=== PATIENT | male | born 1940 | race Caucasian/White ===

== ENCOUNTER 2018-04-11 00:08 | Inpatient (IN) | payer MEDICARE, OTHER ==
[~2018-04-11] VITALS: Ht 185.4 cm; Wt 84.0 kg
[2018-04-11 02:12] LABS: CLARITY,URINE CLEAR (Clear); COLOR,URINE YELLOW (Yellow); GLUCOSE, URINE NEGATIVE (Neg); KETONES,URINE NEGATIVE (Neg); LEUKOCYTE ESTERASE ,URINE NEGATIVE (Neg); NITRITES, URINE NEGATIVE (Neg); OCCULT BLOOD,URINE NEGATIVE (Neg); PROTEIN,URINE TRACE mg/dl (Neg)
[2018-04-11 02:25] LABS: UA COLLECTION TYPE URINAL
[2018-04-11 02:26] LABS: BACTERIA,URINE FEW /HPF (Neg); RBC,URINE 0-2 /HPF (0-2); SQUAMOUS EPITHELIAL CELL,UR FEW /LPF (FEW); WBC,URINE 0-4 /HPF (0-4)
[2018-04-11 02:27] LABS: BASOPHILS # (AUTO) 0.1 X10'3 (0-0.2); BASOPHILS % (AUTO) 1.2 % (0-1); EOSINOPHILS # (AUTO) 0.2 X10'3 (0-0.9); EOSINOPHILS % (AUTO) 3.2 % (0-6); HEMATOCRIT 40.1 % (42.0-52.0); HEMOGLOBIN 13.9 g/dl (14.0-17.9); LYMPHOCYTES # (AUTO) 0.5 X10'3 (1.1-4.8); LYMPHOCYTES % (AUTO) 7.6 % (21-51); MEAN CORPUSCULAR HEMOGLOBIN 32.5 PG (27.0-31.0); MEAN CORPUSCULAR HGB CONC 34.5 % (33.0-36.5); MEAN CORPUSCULAR VOLUME 94.1 FL (78-98); MEAN PLATELET VOLUME 7.6 FL (7.4-10.4); MONOCYTES # (AUTO) 0.9 X10'3 (0-0.9); NEUTROPHILS # (AUTO) 4.5 X10'3 (1.8-7.7); PLATELET COUNT 328 X10'3 (140-440); RED BLOOD COUNT 4.26 X10'6 (4.70-6.10); RED CELL DISTRIBUTION WIDTH 13.4 % (11.5-14.5); WHITE BLOOD COUNT 6.1 X10'3 (4.5-11.0)
[2018-04-11 02:34] LABS: PROTHROMBIN TIME 10.6 SECONDS (9.0-12.0)
[2018-04-11 02:39] LABS: ALANINE AMINOTRANSFERASE 86 U/L (12-78); ALBUMIN 3.1 G/DL (3.4-5.0); ALBUMIN/GLOBULIN RATIO 0.8 (1.1-1.5); ALKALINE PHOSPHATASE 119 IU/L (46-116); ANION GAP 8 (8-16); ASPARTATE AMINO TRANSFERASE 111 U/L (10-37); BILIRUBIN,TOTAL 1.4 MG/DL (0.1-1.0); BLOOD UREA NITROGEN 18 MG/DL (7-18); BUN/CREATININE RATIO 17.3 (5.4-32.0); CALCIUM 8.6 MG/DL (8.5-10.1); CHLORIDE 99 MMOL/L (99-107); CREATININE 1.04 MG/DL (0.60-1.10); GLUCOSE 122 MG/DL (70-104); POTASSIUM 3.3 MMOL/L (3.5-5.1); SODIUM 136 MMOL/L (135-145); TOTAL CARBON DIOXIDE 29.4 MMOL/L (24-32); TOTAL PROTEIN 7.2 G/DL (6.4-8.2); eGFR 69 ML/MIN
[2018-04-11] MEDS ORDERED: bisacodyl 10mg suppository rectal RC ONE (03:30)
[2018-04-11] MEDS ORDERED: HYDR25TA4 (03:47)
[2018-04-11] MEDS ORDERED: FLUT16SP20 (03:47)
[2018-04-11] MEDS ORDERED: normal saline 1000ML IV soln IVB ONE ×2 (03:50→06:40)
[2018-04-11] MEDS: diatr meglu/diatrizoate 30ml oral sol.-(3 dose) bottle PO SCH ×3 (03:56→05:23)
[2018-04-11] MEDS ORDERED: iohexol 300mg/ml 100ml inj. ONE (05:20)
[2018-04-11] MEDS ORDERED: magnesium 2GM in 50ml NS 50 ML IV ONE (05:37)
[2018-04-11] MEDS ORDERED: potassium 10mEq/100ml NS w/LIDOcaine (10mg/bag) IV ONE (05:40)
[2018-04-11] MEDS ORDERED: piperacillin/tazo 3.375gm/50ml 50 ML IV ONE (06:40)
[2018-04-11] MEDS ORDERED: potassium Cl 20mEq in NS 1,000 ML IV SCH (07:49)
[2018-04-11 07:50] LABS: MAGNESIUM 1.7 MG/DL (1.5-2.4)
[2018-04-11] MEDS ORDERED: morphine 4 MG/ML inj SYRINge IV PRN ×2 (07:50)
[2018-04-11] MEDS ORDERED: ondansetron/PF 4mg/2ml inj IV PRN (07:50)
[2018-04-11] MEDS ORDERED: acetaminophen 325mg tablet PO PRN (07:50)
[2018-04-11] MEDS ORDERED: piperacillin/tazo 3.375gm/50ml 50 ML IV SCH (08:00)
[2018-04-11] MEDS ORDERED: ALB0.5UD IH (08:08)
[2018-04-11 08:40] VITALS: BP 111/81
[2018-04-11] MEDS ORDERED: HYDR25TA4 PO (09:21)
[2018-04-11] MEDS ORDERED: albuterol 2.5 MG/3 ML nebule NEB PRN (09:35)
[2018-04-11] MEDS ORDERED: APIX5TAB3 PO (11:33)
[2018-04-11] MEDS ORDERED: lactobacillus rhamnosus 10,000 MMU CELLS/CAPSULE PO SCH (20:00)
[2018-04-28] MEDS ORDERED: ASPI-611 PO (14:34)
== END 2018-04-11 13:04 | disposition home or self-care (01) | DRG 445 ==
LOC: ER 00:09 → ED HOLD 07:49
PROVIDERS: ADMIT Internal Medicine; ATTEND Internal Medicine
PROC: BW211ZZ Computerized Tomography (CT Scan) of Abdomen and Pelvis using Low Osmolar Contrast (ICD-10-PCS; principal; 2018-04-11)
DX: K80.00 Calculus of gallbladder with acute cholecystitis without obstruction (principal); C64.1 Malignant neoplasm of right kidney, except renal pelvis; I10 Essential (primary) hypertension; I71.4 Abdominal aortic aneurysm, without rupture; Z90.79 Acquired absence of other genital organ(s); Z88.8 Allergy status to other drugs, medicaments and biological substances; Z79.899 Other long term (current) drug therapy; Z79.01 Long term (current) use of anticoagulants
CPT/HCPCS: 36415; 74018; 74177; 76700; 80053; 81001; 83605; 83690; 83735; 85025; 85610; 87040; 93306; 96365; 96368; 96375; 99285; J2543; J3475; J3480; J7030; Q9963; Q9967

== ENCOUNTER 2018-04-29 07:06 | Day surgery (SDC) | payer MEDICARE ==
[~2018-04-29] VITALS: Ht 185.4 cm; Wt 84.0 kg
[2018-04-29] VITALS (11 sets, daily range): BP systolic 116–176; BP diastolic 60–113
[~2018-04-29 07:06] MED LIST: ALB0.5UD IH; ASPI-611 PO; HYDR25TA4 PO; albuterol 2.5 MG/3 ML nebule NEB ONE; ceFOXitin 2 GM ADDvantage bag 100 ML IV ONE; famotidine 20mg tablet PO ONE; ringers solution, lacted 1,000 ML IV SCH
[2018-04-29 07:35] LABS: BASOPHILS % (AUTO) 0.2 % (0-1); EOSINOPHILS # (AUTO) 0.2 X10'3 (0-0.9); EOSINOPHILS % (AUTO) 2.9 % (0-6); LYMPHOCYTES # (AUTO) 0.9 X10'3 (1.1-4.8); MEAN CORPUSCULAR HEMOGLOBIN 32.4 PG (27.0-31.0); MEAN CORPUSCULAR HGB CONC 34.7 % (33.0-36.5); MEAN CORPUSCULAR VOLUME 93.3 FL (78-98); MEAN PLATELET VOLUME 7.5 FL (7.4-10.4); MONOCYTES # (AUTO) 0.9 X10'3 (0-0.9); MONOCYTES % (AUTO) 12.3 % (2-12); NEUTROPHILS # (AUTO) 5.4 X10'3 (1.8-7.7); NEUTROPHILS % (AUTO) 72.6 % (42-75); PRE OP HEMATOCRIT 42.5 % (42.0-52.0); PRE OP HEMOGLOBIN 14.8 g/dL (14.0-17.9); PRE OP PLATELET COUNT 354 X10'3 (140-440); RED BLOOD COUNT 4.55 X10'6 (4.70-6.10); RED CELL DISTRIBUTION WIDTH 13.6 % (11.5-14.5)
[2018-04-29 07:35] LABS: CLARITY,URINE SLIGHTLY CLOUDY (Clear); GLUCOSE, URINE NEGATIVE (Neg); KETONES,URINE TRACE mg/dl (Neg); LEUKOCYTE ESTERASE ,URINE NEGATIVE (Neg); NITRITES, URINE NEGATIVE (Neg); OCCULT BLOOD,URINE LARGE (Neg); PH,URINE 5.5 (4.8-8.0); PROTEIN,URINE TRACE mg/dl (Neg)
[2018-04-29 07:36] LABS: COLOR,URINE DARK YELLOW (Yellow); UA COLLECTION TYPE CLN CATCH MIDSTREAM
[2018-04-29 07:43] LABS: RBC,URINE TNTC /HPF (0-2); WBC,URINE 0-4 /HPF (0-4)
[2018-04-29 07:44] LABS: BACTERIA,URINE NONE SEEN /HPF (Neg); SQUAMOUS EPITHELIAL CELL,UR FEW /LPF (FEW)
[2018-04-29 07:48] LABS: ALBUMIN 3.4 G/DL (3.4-5.0); ALBUMIN/GLOBULIN RATIO 0.8 (1.1-1.5); ALKALINE PHOSPHATASE 98 IU/L (46-116); BLOOD UREA NITROGEN 19 MG/DL (7-18); BUN/CREATININE RATIO 16.2 (5.4-32.0); CALCIUM 9.5 MG/DL (8.5-10.1); CHLORIDE 100 MMOL/L (99-107); CREATININE 1.17 MG/DL (0.60-1.10); PRE OP ALT 20 U/L (30-65); PRE OP ANION GAP 6 (8-16); PRE OP AST 15 U/L (10-37); PRE OP BILIRUB, TOTAL 0.5 MG/DL (0.0-1.0); PRE OP GLUCOSE 101 MG/DL (70-104); PRE OP POTASSIUM 3.4 MMOL/L (3.4-5.1); PRE OP SODIUM 137 MMOL/L (135-145); TOTAL CARBON DIOXIDE 31.5 MMOL/L (24-32); TOTAL PROTEIN 7.7 G/DL (6.4-8.2); eGFR 61 ML/MIN
[2018-04-29] MEDS ORDERED: ceFAZolin 1000mg inj ONE (08:36)
[2018-04-29] MEDS ORDERED: BUPIVAcaine/PF 7.5mg/ml (0.75%) 10ml vial ONE (08:36)
[2018-04-29] MEDS ORDERED: sevoflurane 250ml liquid IH ONE (08:52)
[2018-04-29] MEDS ORDERED: midazolam 2 mg/2 ml injection ONE (08:55)
[2018-04-29] MEDS ORDERED: fentaNYL/PF 50MCG/1 ML 2ML syringe ONE (08:55)
[2018-04-29] MEDS ORDERED: rocuronium 10mg/ml inj IV ONE (08:55)
[2018-04-29] MEDS ORDERED: propofol inj 20 ML IV ONE (08:55)
[2018-04-29] MEDS ORDERED: dexamethasone sod phosphate 4mg/ml inj. ONE (09:23)
[2018-04-29] MEDS ORDERED: glycopyrrolate 0.2mg/ml inj ONE (09:24)
[2018-04-29] MEDS ORDERED: neostigmine methylsulfate 1 MG/ML 10ml vial ONE (09:24)
[2018-04-29] MEDS ORDERED: ringers solution, lacted 1,000 ML IV SCH (09:27)
[2018-04-29] MEDS ORDERED: morphine 4 MG/ML inj SYRINge IV PRN ×2 (09:30)
[2018-04-29] MEDS ORDERED: meperidine/PF 25mg/ml syringe IV PRN ×3 (09:30)
[2018-04-29] MEDS ORDERED: proCHLORperazine 10 MG/2 ml inj IV PRN (09:30)
[2018-04-29] MEDS ORDERED: labetalol 20mg/4ml (5mg/ml) syringe IV PRN (09:30)
[2018-04-29] MEDS ORDERED: ondansetron/PF 4mg/2ml inj IV PRN (09:30)
[2018-04-29] MEDS ORDERED: albuterol 2.5 MG/3 ML nebule NEB ONE (10:10)
[2018-04-29] MEDS ORDERED: albuterol 2.5 MG/3 ML nebule ONE (10:12)
== END 2018-04-29 11:19 | disposition home or self-care (01) ==
LOC: PAS 07:06
PROVIDERS: ATTEND Surgery
DX: K80.10 Calculus of gallbladder with chronic cholecystitis without obstruction (principal); J44.9 Chronic obstructive pulmonary disease, unspecified; I10 Essential (primary) hypertension; F17.210 Nicotine dependence, cigarettes, uncomplicated; I71.4 Abdominal aortic aneurysm, without rupture; Z85.46 Personal history of malignant neoplasm of prostate; Z79.82 Long term (current) use of aspirin; Z79.891 Long term (current) use of opiate analgesic; Z88.6 Allergy status to analgesic agent; Z90.79 Acquired absence of other genital organ(s); Z88.8 Allergy status to other drugs, medicaments and biological substances; Z79.899 Other long term (current) drug therapy; Z98.890 Other specified postprocedural states
CPT/HCPCS: 36415; 47562; 80053; 81001; 85025; 93005; 94640; 94760; J0690; J0694; J1100; J2175; J2250; J2270; J2704; J2710; J3010; J3490; J7120; 88304; A7000

== ENCOUNTER 2019-03-29 06:20 | Day surgery (SDC) | payer MEDICARE ==
[~2019-03-29] VITALS: Ht 185.4 cm; Wt 64.0 kg
[~2019-03-29 06:20] MED LIST changes: -albuterol 2.5 MG/3 ML nebule NEB ONE; -ceFOXitin 2 GM ADDvantage bag 100 ML IV ONE; -famotidine 20mg tablet PO ONE; -ringers solution, lacted 1,000 ML IV SCH
[2019-03-29 06:44] VITALS: BP 128/78
[2019-03-29 08:40] VITALS: BP 121/76
[2019-03-29 08:55] VITALS: BP 128/78
[2019-03-29 09:10] VITALS: BP 129/81
[2019-03-29 09:25] VITALS: BP 129/80
[2019-03-29 09:37] VITALS: BP 135/74
== END 2019-03-29 09:37 | disposition home or self-care (01) ==
LOC: SSTAY O 06:20
PROVIDERS: ATTEND Radiology Vascular & Interventional Radiology
DX: J90 Pleural effusion, not elsewhere classified (principal); I10 Essential (primary) hypertension; Z90.49 Acquired absence of other specified parts of digestive tract; Z98.890 Other specified postprocedural states; Z85.46 Personal history of malignant neoplasm of prostate; Z88.8 Allergy status to other drugs, medicaments and biological substances
CPT/HCPCS: 32555; 71045; C1729

== ENCOUNTER 2019-04-16 17:24 | Emergency (ER) | payer MEDICARE ==
[~2019-04-16] VITALS: Ht 185.4 cm; Wt 64.0 kg
[~2019-04-16 17:24] MED LIST changes: +ALBU8HFA PO; -ASPI-611 PO; +BUDE10.22 INH; -HYDR25TA4 PO; +LACT1CAP26 PO; +LEVO750T46 PO; +MELA3TAB PO; +PRED10TA23 PO; +SODI1TAB2 PO
[2019-04-16 18:09] LABS: BASOPHILS # (AUTO) 0.1 X10'3 (0-0.2); BASOPHILS % (AUTO) 0.9 % (0-1); EOSINOPHILS % (AUTO) 0.1 % (0-6); HEMATOCRIT 34.3 % (42.0-52.0); HEMOGLOBIN 12.2 g/dl (14.0-17.9); LYMPHOCYTES # (AUTO) 0.2 X10'3 (1.1-4.8); LYMPHOCYTES % (AUTO) 2.2 % (21-51); MEAN CORPUSCULAR HEMOGLOBIN 35.5 PG (27.0-31.0); MEAN CORPUSCULAR HGB CONC 35.5 g/dL (33.0-36.5); MEAN PLATELET VOLUME 7.4 FL (7.4-10.4); MONOCYTES # (AUTO) 0.7 X10'3 (0-0.9); MONOCYTES % (AUTO) 6.1 % (2-12); NEUTROPHILS # (AUTO) 9.8 X10'3 (1.8-7.7); NEUTROPHILS % (AUTO) 90.7 % (42-75); PLATELET COUNT 246 X10'3 (140-440); RED BLOOD COUNT 3.43 X10'6 (4.70-6.10); RED CELL DISTRIBUTION WIDTH 13.6 % (11.5-14.5); WHITE BLOOD COUNT 10.8 X10'3 (4.5-11.0)
--- NOTE | 2019-04-16 18:18 | NUR ---
PT ATTEMPTED TO VOID, STATES HE CAN'T AT THIS TIME
[2019-04-16 18:22] LABS: ALANINE AMINOTRANSFERASE 28 U/L (12-78); ALKALINE PHOSPHATASE 87 IU/L (46-116); ANION GAP 5 (8-16); ASPARTATE AMINO TRANSFERASE 18 U/L (10-37); BILIRUBIN,TOTAL 0.4 MG/DL (0.1-1.0); BLOOD UREA NITROGEN 27 MG/DL (7-18); CALCIUM 8.8 MG/DL (8.5-10.1); CHLORIDE 97 MMOL/L (99-107); GLUCOSE 98 MG/DL (70-104); SODIUM 130 MMOL/L (135-145); TOTAL CARBON DIOXIDE 28.1 MMOL/L (24-32); TOTAL PROTEIN 6.1 G/DL (6.4-8.2); eGFR 82 ML/MIN
--- NOTE | 2019-04-16 19:00 | NUR ---
DISCUSSED ELEVATED LACTATE WITH DR RIVAS, NO ORDERS FOR FLUID
[2019-04-16 20:01] LABS: CLARITY,URINE CLEAR (Clear); COLOR,URINE YELLOW (Yellow); GLUCOSE, URINE NEGATIVE (Neg); KETONES,URINE NEGATIVE (Neg); LEUKOCYTE ESTERASE ,URINE NEGATIVE (Neg); NITRITES, URINE NEGATIVE (Neg); OCCULT BLOOD,URINE NEGATIVE (Neg); PH,URINE 8.5 (4.8-8.0); PROTEIN,URINE TRACE mg/dl (Neg)
[2019-04-16 20:06] LABS: UA COLLECTION TYPE URINAL
[2019-04-16 20:07] LABS: BACTERIA,URINE FEW /HPF (Neg); RBC,URINE NONE SEEN /HPF (0-2); SQUAMOUS EPITHELIAL CELL,UR FEW /LPF (FEW)
[2019-04-16] MEDS ORDERED: magnesium citrate 296ml oral solution PO ONE (20:10)
[2019-04-16] MEDS ORDERED: ipratropium/albuterol 3ml nebule NEB ONE (20:10)
--- NOTE | 2019-04-16 21:03 | NUR ---
PATIENT DRINKING MAGNESIUM CITRATE AFTER NEBS COMPLETED
[2019-04-16] MEDS ORDERED: POLY17PO10 PO (21:42)
--- NOTE | 2019-04-16 22:26 | NUR ---
ORDER OF SOAP SUDS ENEMA. PT PLACED IN PEREZ POSITION. APROX. 1 LITER OF WARM WATER RUN SLOWLY INTO RECTUM. PT UNABLE TO HOLD MOST OF ENEMA FLUID FOR RECOMMENDED LENGTH OF TIME.
[2019-04-16 23:42] VITALS: BP 139/73
== END 2019-04-17 00:12 | disposition home or self-care (01) ==
LOC: ER 17:26
DX: K59.00 Constipation, unspecified (principal); J44.9 Chronic obstructive pulmonary disease, unspecified; I10 Essential (primary) hypertension; F17.200 Nicotine dependence, unspecified, uncomplicated; Z88.8 Allergy status to other drugs, medicaments and biological substances; Z79.2 Long term (current) use of antibiotics; Z90.49 Acquired absence of other specified parts of digestive tract; Z85.118 Personal history of other malignant neoplasm of bronchus and lung; Z98.890 Other specified postprocedural states; Z79.899 Other long term (current) drug therapy
CPT/HCPCS: 36415; 71045; 74176; 80053; 81001; 83605; 83880; 85025; 85610; 87040; 87088; 93005; 94640; 94760; 99284

== ENCOUNTER 2019-07-19 08:48 | Emergency (ER) | payer MEDICARE ==
[~2019-07-19] VITALS: Ht 185.4 cm; Wt 60.0 kg
[~2019-07-19 08:48] MED LIST changes: -ALBU8HFA PO; -MELA3TAB PO; +MELA3TAB64 PO; -PRED10TA23 PO
[2019-07-19] MEDS ORDERED: heparin sodium, porcine/PF 100unit/ml 5ML syringe IV SCH ×2 (09:15→09:21)
--- NOTE | 2019-07-19 09:15 | NUR ---
ACCESSED PORTACATH PER POLICY REQUESTED BY DEMARCO YANG. LABS DRAWN VIA PORTACATH
[2019-07-19 09:27] LABS: BASOPHILS % (AUTO) 0.7 % (0-1); EOSINOPHILS % (AUTO) 0.8 % (0-6); HEMOGLOBIN 10.5 g/dl (14.0-17.9); LYMPHOCYTES # (AUTO) 0.2 X10'3 (1.1-4.8); LYMPHOCYTES % (AUTO) 3.5 % (21-51); MEAN CORPUSCULAR HEMOGLOBIN 35.2 PG (27.0-31.0); MEAN CORPUSCULAR HGB CONC 34.9 g/dL (33.0-36.5); MEAN CORPUSCULAR VOLUME 100.9 FL (78-98); MEAN PLATELET VOLUME 7.1 FL (7.4-10.4); MONOCYTES # (AUTO) 0.7 X10'3 (0-0.9); MONOCYTES % (AUTO) 12.1 % (2-12); NEUTROPHILS # (AUTO) 4.6 X10'3 (1.8-7.7); NEUTROPHILS % (AUTO) 82.9 % (42-75); PLATELET COUNT 320 X10'3 (140-440); RED BLOOD COUNT 2.98 X10'6 (4.70-6.10); RED CELL DISTRIBUTION WIDTH 13.1 % (11.5-14.5); WHITE BLOOD COUNT 5.5 X10'3 (4.5-11.0)
--- NOTE | 2019-07-19 09:36 | NUR ---
PT REMOVED FROM OXYGEN TO GET A ROOM AIR SPO2% PER DR GIRARD REQUEST.
[2019-07-19 09:56] LABS: ALANINE AMINOTRANSFERASE 11 U/L (12-78); ALBUMIN 2.3 G/DL (3.4-5.0); ALBUMIN/GLOBULIN RATIO 0.7 (1.1-1.5); ALKALINE PHOSPHATASE 60 IU/L (46-116); ANION GAP 5 (8-16); ASPARTATE AMINO TRANSFERASE 10 U/L (10-37); BILIRUBIN,TOTAL 0.2 MG/DL (0.1-1.0); BLOOD UREA NITROGEN 15 MG/DL (7-18); BUN/CREATININE RATIO 24.2 (5.4-32.0); CALCIUM 8.5 MG/DL (8.5-10.1); CHLORIDE 99 MMOL/L (99-107); CREATININE 0.62 MG/DL (0.60-1.10); GLUCOSE 91 MG/DL (70-104); POTASSIUM 4.1 MMOL/L (3.5-5.1); SODIUM 133 MMOL/L (135-145); TOTAL CARBON DIOXIDE 29.1 MMOL/L (24-32); TOTAL PROTEIN 5.8 G/DL (6.4-8.2); eGFR > 90 ML/MIN
[2019-07-19 09:59] LABS: MAGNESIUM 1.7 MG/DL (1.5-2.4); TROPONIN I < 0.04 NG/ML (0.0-0.05)
[2019-07-19 10:12] LABS: CLARITY,URINE CLOUDY (Clear); COLOR,URINE YELLOW (Yellow); GLUCOSE, URINE NEGATIVE (Neg); KETONES,URINE NEGATIVE (Neg); LEUKOCYTE ESTERASE ,URINE TRACE (Neg); NITRITES, URINE NEGATIVE (Neg); OCCULT BLOOD,URINE LARGE (Neg); PROTEIN,URINE 100 mg/dl (Neg)
[2019-07-19 10:18] LABS: D-DIMER 3.03 MG/L FEU (0-0.50); PARTIAL THROMBOPLASTIN TIME 69 SECONDS (22-32)
[2019-07-19 10:19] LABS: UA COLLECTION TYPE VOIDED
[2019-07-19 10:23] LABS: RBC,URINE TNTC /HPF (0-2)
[2019-07-19 10:24] LABS: BACTERIA,URINE NONE SEEN /HPF (Neg); CELLULAR CAST 0-4 /LPF (NEGATIVE); MUCUS STRANDS MODERATE /LPF (Neg); SQUAMOUS EPITHELIAL CELL,UR MODERATE /LPF (FEW); WBC,URINE 30-50 /HPF (0-4)
[2019-07-19] MEDS ORDERED: iohexol 350MG/ML 100ml bottle IV ONE (11:35)
--- NOTE | 2019-07-19 11:56 | NUR ---
PLACED 20 GAUGE IV PT RAC PER CTA DR GIRARD
[2019-07-19] MEDS ORDERED: CefTRIAXone 2gm/D5W 50ml 50 ML IV ONE (12:55)
[2019-07-19] MEDS ORDERED: RISP1TAB3 PO (12:56)
[2019-07-19] MEDS ORDERED: CEPH500C5 PO (12:56)
[2019-07-19] MEDS ORDERED: normal saline 1000ML IV soln IVB ONE (13:20)
[2019-07-19 14:26] VITALS: BP 144/82
== END 2019-07-19 14:28 | disposition home or self-care (01) ==
LOC: ER 08:49
DX: J90 Pleural effusion, not elsewhere classified (principal); N39.0 Urinary tract infection, site not specified; I10 Essential (primary) hypertension; J44.9 Chronic obstructive pulmonary disease, unspecified; Z90.49 Acquired absence of other specified parts of digestive tract; Z98.890 Other specified postprocedural states; Z88.6 Allergy status to analgesic agent; Z79.2 Long term (current) use of antibiotics; Z79.899 Other long term (current) drug therapy
CPT/HCPCS: 36415; 71045; 80053; 81001; 83605; 83735; 83880; 84145; 84484; 85025; 85379; 85610; 85730; 87040; 87088; 93005; 96365; 99284; J0696; J1642; J7030; Q9967; 71275

== ENCOUNTER 2019-08-10 14:09 | Inpatient (IN) | payer MEDICARE ==
[~2019-08-10] VITALS: Ht 177.8 cm; Wt 65.0 kg
[~2019-08-10 14:09] MED LIST changes: +CEPH500C5 PO; +RISP1TAB3 PO
[2019-08-10 14:50] LABS: BASOPHILS % (AUTO) 0 % (0-1); EOSINOPHILS % (AUTO) 0.3 % (0-6); HEMATOCRIT 37.6 % (42.0-52.0); HEMOGLOBIN 12.6 g/dl (14.0-17.9); LYMPHOCYTES # (AUTO) 0.1 X10'3 (1.1-4.8); LYMPHOCYTES % (AUTO) 1.5 % (21-51); MEAN CORPUSCULAR HEMOGLOBIN 34.1 PG (27.0-31.0); MEAN CORPUSCULAR HGB CONC 33.5 g/dL (33.0-36.5); MEAN CORPUSCULAR VOLUME 101.6 FL (78-98); MEAN PLATELET VOLUME 7.4 FL (7.4-10.4); MONOCYTES # (AUTO) 0.8 X10'3 (0-0.9); MONOCYTES % (AUTO) 8.6 % (2-12); NEUTROPHILS # (AUTO) 8.3 X10'3 (1.8-7.7); NEUTROPHILS % (AUTO) 89.6 % (42-75); PLATELET COUNT 460 X10'3 (140-440); RED CELL DISTRIBUTION WIDTH 13.7 % (11.5-14.5); WHITE BLOOD COUNT 9.3 X10'3 (4.5-11.0)
[2019-08-10 14:57] LABS: ALANINE AMINOTRANSFERASE 16 U/L (12-78); ALBUMIN 2.9 G/DL (3.4-5.0); ALBUMIN/GLOBULIN RATIO 0.7 (1.1-1.5); ALKALINE PHOSPHATASE 65 IU/L (46-116); ANION GAP 8 (8-16); ASPARTATE AMINO TRANSFERASE 11 U/L (10-37); BILIRUBIN,TOTAL 0.3 MG/DL (0.1-1.0); BLOOD UREA NITROGEN 43 MG/DL (7-18); BUN/CREATININE RATIO 29.9 (5.4-32.0); CALCIUM 9.6 MG/DL (8.5-10.1); CHLORIDE 101 MMOL/L (99-107); CREATININE 1.44 MG/DL (0.60-1.10); GLUCOSE 103 MG/DL (70-104); POTASSIUM 4.7 MMOL/L (3.5-5.1); SODIUM 137 MMOL/L (135-145); TOTAL PROTEIN 7.1 G/DL (6.4-8.2); eGFR 47 ML/MIN
[2019-08-10] MEDS ORDERED: morphine 2 MG/ML inj. syringe IV ONE (15:10)
[2019-08-10] MEDS ORDERED: ipratropium/albuterol 3ml nebule NEB ONE (15:35)
[2019-08-10 16:11] LABS: ABG BASE EXCESS -1.7 mmol/L (-2.0-3.0); ABG HCO3 22.7 mmol/L (22.0-26.0); ABG OXYGEN SATURATION 95.8 % (95-98); ABG PCO2 (T) 35.9 mmHg (35.0-45.0); ABG PH (T) 7.415 (7.350-7.450); ALLEN'S TEST Positive; FCOHb 2.4 % (0.5-1.5); FLOW 2 L/min; FMetHb 0.2 % (0.3-1.12); FO2Hb 93.3 % (94-100); PATIENT TEMPERATURE 36.1; TOTAL HEMOGLOBIN 12.1 G/dl (14.0-17.9)
[2019-08-10 16:26] LABS: TROPONIN I < 0.04 NG/ML (0.0-0.05)
[2019-08-10] MEDS ORDERED: MELA3TAB64 PO (17:29)
[2019-08-10] MEDS ORDERED: MEGE400O2 PO (17:29)
[2019-08-10] MEDS ORDERED: RISP1TAB72 PEG (17:29)
[2019-08-10] MEDS ORDERED: BUDE10.22 INH (17:29)
[2019-08-10] MEDS ORDERED: ALBU18HF2 PO (17:29)
[2019-08-10] MEDS ORDERED: acetaminophen 325mg tablet PO PRN (17:45)
[2019-08-10] MEDS ORDERED: HYDROcodone/acetaminophen 5mg/325mg tablet PO PRN (17:45)
[2019-08-10] MEDS ORDERED: magnesium hydroxide 30ml (MOM) UD suspension PO PRN (17:45)
[2019-08-10] MEDS ORDERED: ondansetron/PF 4mg/2ml inj IV PRN (17:45)
[2019-08-10] MEDS ORDERED: morphine 2 MG/ML inj. syringe IV PRN ×2 (17:45)
[2019-08-10] MEDS ORDERED: mag hydrox/Alum hydrox/simeth 30ml oral suspension PO PRN (17:45)
[2019-08-10] MEDS: ipratropium/albuterol 3ml nebule NEB SCH ×2 (19:37→23:41)
[2019-08-10] MEDS: albuterol 2.5 MG/3 ML nebule NEB SCH ×2 (19:37→23:41)
[2019-08-10 20:00] VITALS: BP 117/65
[2019-08-10] MEDS ORDERED: non-formulary drug (Budesonide/Formoterol Fumarate (Symbicort 80-4.5 Mcg Inhaler) 2 PUFFS) INH SCH (20:00)
--- NOTE | 2019-08-10 20:11 | NUR ---
called to give report. Charge april said assigned nurse with call back
--- NOTE | 2019-08-10 20:19 | NUR ---
Received report from ER nurse Conrad CARRIZALES. Will assume care.
[2019-08-10] MEDS ORDERED: Melatonin 3mg tablet PO SCH (21:00)
[2019-08-10] MEDS: budesonide 0.5mg/2ml UD nebule IH SCH (21:00)
[2019-08-10] MEDS: methylPREDNISolone sod succ/PF 40mg inj. IV SCH (21:18)
[2019-08-10] MEDS: megestrol acetate 400mg/10ml UD oral suspension PO SCH (23:06)
[2019-08-11] VITALS (10 sets, daily range): BP systolic 103–144; BP diastolic 58–87
[2019-08-11] MEDS: methylPREDNISolone sod succ/PF 40mg inj. IV SCH ×3 (01:57→14:49)
[2019-08-11] MEDS: ipratropium/albuterol 3ml nebule NEB SCH ×4 (03:11→15:52)
[2019-08-11] MEDS: albuterol 2.5 MG/3 ML nebule NEB SCH ×2 (03:11→07:00)
[2019-08-11 05:54] LABS: BASOPHILS % (AUTO) 0.1 % (0-1); EOSINOPHILS % (AUTO) 0 % (0-6); HEMATOCRIT 32.2 % (42.0-52.0); HEMOGLOBIN 11.1 g/dl (14.0-17.9); LYMPHOCYTES # (AUTO) 0.1 X10'3 (1.1-4.8); LYMPHOCYTES % (AUTO) 0.8 % (21-51); MEAN CORPUSCULAR HEMOGLOBIN 34.9 PG (27.0-31.0); MEAN CORPUSCULAR HGB CONC 34.6 g/dL (33.0-36.5); MEAN PLATELET VOLUME 7.2 FL (7.4-10.4); MONOCYTES # (AUTO) 0.4 X10'3 (0-0.9); MONOCYTES % (AUTO) 4.9 % (2-12); NEUTROPHILS % (AUTO) 94.2 % (42-75); PLATELET COUNT 324 X10'3 (140-440); RED BLOOD COUNT 3.19 X10'6 (4.70-6.10); WHITE BLOOD COUNT 7.5 X10'3 (4.5-11.0)
--- NOTE | 2019-08-11 06:00 | NUR ---
Patient moved from room 360B to 346A. Tele chamber called and informed of room change.
[2019-08-11 06:10] LABS: PARTIAL THROMBOPLASTIN TIME 30 SECONDS (22-32)
[2019-08-11 06:13] LABS: ALBUMIN 2.5 G/DL (3.4-5.0); ANION GAP 11 (8-16); BLOOD UREA NITROGEN 45 MG/DL (7-18); BUN/CREATININE RATIO 34.1 (5.4-32.0); CHLORIDE 103 MMOL/L (99-107); CREATININE 1.32 MG/DL (0.60-1.10); GLUCOSE 104 MG/DL (70-104); POTASSIUM 4.7 MMOL/L (3.5-5.1); SODIUM 138 MMOL/L (135-145); TOTAL CARBON DIOXIDE 24.1 MMOL/L (24-32); eGFR 52 ML/MIN
--- NOTE | 2019-08-11 06:24 | NUR ---
Problems reprioritized. Patient report given, questions answered & plan of care reviewed with Simin CARRIZALES.
[2019-08-11] MEDS: budesonide 0.5mg/2ml UD nebule IH SCH (07:38)
[2019-08-11] MEDS ORDERED: non-formulary drug (Risperidone 1 TAB) PEG SCH (08:00)
[2019-08-11] MEDS ORDERED: risperiDONE 0.5mg tablet PO SCH (08:00)
[2019-08-11] MEDS: megestrol acetate 400mg/10ml UD oral suspension PO SCH (09:15)
[2019-08-11] MEDS ORDERED: FLU VACC QS2019-20 36MOS UP/PF 60 MCG/0.5 ML SYRINGE IMVAC ONE (10:00)
--- NOTE | 2019-08-11 12:00 | NUR ---
Received report from student RN, pt in bed resting, no s/s of distress, call light within reach. Bed locked and in low position. Will continue to monitor.
[2019-08-11] MEDS ORDERED: lactose-reduced food (Ensure Enlive) - 237ml bottle PO SCH (13:00)
--- NOTE | 2019-08-11 15:13 | NUR ---
Thoracentesis completed. Post procedure vitals begun. paged regarding orders on sample pulled.
[2019-08-11] MEDS ORDERED: PRED10TA23 PO (15:38)
[2019-08-11] MEDS ORDERED: LEVO500T89 PO (15:38)
--- NOTE | 2019-08-11 16:26 | NUR ---
Patient discharged home stable and appropriate. All belongings taken from room. IV and vehicle monitor technician removed. New prescriptions called into [facility] in [place].
== END 2019-08-11 16:29 | disposition home or self-care (01) | DRG 180 ==
LOC: ER 14:10 → ED HOLD 18:49 → SUR 3N 20:35 → CMPBEDREQ 20:59 → SUR 3N 08-11 06:15
PROVIDERS: ADMIT Family Medicine; ATTEND Family Medicine
PROC: 0W9B3ZZ Drainage of Left Pleural Cavity, Percutaneous Approach (ICD-10-PCS; principal; 2019-08-11)
PROC: 3E02340 Introduction of Influenza Vaccine into Muscle, Percutaneous Approach (ICD-10-PCS; 2019-08-11)
DX: C34.90 Malignant neoplasm of unspecified part of unspecified bronchus or lung (principal); J96.20 Acute and chronic respiratory failure, unspecified whether with hypoxia or hypercapnia; J44.1 Chronic obstructive pulmonary disease with (acute) exacerbation; I13.0 Hypertensive heart and chronic kidney disease with heart failure and stage 1 through stage 4 chronic kidney disease, or unspecified chronic kidney disease; J91.8 Pleural effusion in other conditions classified elsewhere; E46 Unspecified protein-calorie malnutrition; I50.9 Heart failure, unspecified; Z51.5 Encounter for palliative care; J98.4 Other disorders of lung; Z66 Do not resuscitate; N18.9 Chronic kidney disease, unspecified; K57.90 Diverticulosis of intestine, part unspecified, without perforation or abscess without bleeding; Z85.46 Personal history of malignant neoplasm of prostate; Z63.4 Disappearance and death of family member; Z23 Encounter for immunization; Z88.6 Allergy status to analgesic agent; Z90.49 Acquired absence of other specified parts of digestive tract; Z68.20 Body mass index [BMI] 20.0-20.9, adult
CPT/HCPCS: 32555; 36415; 36600; 71045; 71046; 80048; 80053; 82803; 83605; 83880; 84484; 85018; 85025; 85610; 85730; 87040; 87081; 87502; 87503; 93005; 94640; 94760; 96374; 99285; G0378; J2270; J2920; J7626; Q2037

== ENCOUNTER 2019-08-16 22:00 | Inpatient (IN) | payer MEDICARE ==
[~2019-08-16] VITALS: Ht 177.8 cm; Wt 65.0 kg
[~2019-08-16 22:00] MED LIST changes: -ALB0.5UD IH; +ALBU18HF2 PO; -CEPH500C5 PO; -LACT1CAP26 PO; +LEVO500T89 PO; -LEVO750T46 PO; +MEGE400O2 PO; +PRED10TA23 PO; -RISP1TAB3 PO; +RISP1TAB72 PEG; -SODI1TAB2 PO
[2019-08-16] MEDS ORDERED: diltiazem-D5W 125mg/125ml 125 ML IV ONE (22:13)
[2019-08-16] MEDS ORDERED: ipratropium 0.5 MG/2.5ML nebule IH ONE ×2 (22:15)
[2019-08-16] MEDS ORDERED: diltiazem 5mg/ml 5ml inj. IV ONE ×2 (22:15→22:35)
[2019-08-16] MEDS ORDERED: methylPREDNISolone sod succ 125mg/2ml vial IV ONE (22:15)
[2019-08-16] MEDS ORDERED: albuterol 2.5 MG/3 ML nebule CONTNEB PRN ×2 (22:15)
[2019-08-16] MEDS ORDERED: normal saline 1000ML IV soln IVB ONE ×2 (22:15→23:35)
[2019-08-16] MEDS ORDERED: diltiazem-NS 100mg/100ml 100 ML IV ONE (22:24)
[2019-08-16 22:31] LABS: PARTIAL THROMBOPLASTIN TIME 24 SECONDS (22-32)
[2019-08-16 22:32] LABS: BASOPHILS % (AUTO) 0.1 % (0-1); EOSINOPHILS % (AUTO) 0.1 % (0-6); HEMATOCRIT 36.1 % (42.0-52.0); HEMOGLOBIN 12.1 g/dl (14.0-17.9); LYMPHOCYTES # (AUTO) 0.4 X10'3 (1.1-4.8); LYMPHOCYTES % (AUTO) 4.6 % (21-51); MEAN CORPUSCULAR HEMOGLOBIN 34.4 PG (27.0-31.0); MEAN CORPUSCULAR HGB CONC 33.4 g/dL (33.0-36.5); MEAN CORPUSCULAR VOLUME 102.9 FL (78-98); MEAN PLATELET VOLUME 7.2 FL (7.4-10.4); MONOCYTES # (AUTO) 0.2 X10'3 (0-0.9); MONOCYTES % (AUTO) 2.9 % (2-12); NEUTROPHILS # (AUTO) 7.8 X10'3 (1.8-7.7); NEUTROPHILS % (AUTO) 92.3 % (42-75); PLATELET COUNT 404 X10'3 (140-440); RED BLOOD COUNT 3.51 X10'6 (4.70-6.10); RED CELL DISTRIBUTION WIDTH 13.9 % (11.5-14.5); WHITE BLOOD COUNT 8.5 X10'3 (4.5-11.0)
[2019-08-16 22:33] LABS: ALANINE AMINOTRANSFERASE 27 U/L (12-78); ALBUMIN 2.7 G/DL (3.4-5.0); ALBUMIN/GLOBULIN RATIO 0.6 (1.1-1.5); ALKALINE PHOSPHATASE 68 IU/L (46-116); ANION GAP 5 (8-16); ASPARTATE AMINO TRANSFERASE 18 U/L (10-37); BILIRUBIN,TOTAL 0.2 MG/DL (0.1-1.0); BLOOD UREA NITROGEN 49 MG/DL (7-18); BUN/CREATININE RATIO 53.3 (5.4-32.0); CHLORIDE 107 MMOL/L (99-107); CREATININE 0.92 MG/DL (0.60-1.10); GLUCOSE 155 MG/DL (70-104); POTASSIUM 4.5 MMOL/L (3.5-5.1); SODIUM 146 MMOL/L (135-145); TOTAL CARBON DIOXIDE 34.2 MMOL/L (24-32); TOTAL PROTEIN 6.9 G/DL (6.4-8.2); eGFR 80 ML/MIN
[2019-08-16 22:39] LABS: MAGNESIUM 1.7 MG/DL (1.5-2.4)
[2019-08-16 22:45] LABS: ABG BASE EXCESS 2.1 mmol/L (-2.0-3.0); ABG HCO3 33.9 mmol/L (22.0-26.0); ABG OXYGEN SATURATION 92.3 % (95-98); ABG PCO2 (T) 101.4 mmHg (35.0-45.0); ABG PO2 (T) 80.5 mmHg (83-108); FCOHb 2.2 % (0.5-1.5); FLOW 8 L/min; FMetHb 0.2 % (0.3-1.12); FO2Hb 90.1 % (94-100); PATIENT TEMPERATURE 36.6; TOTAL HEMOGLOBIN 12.1 G/dl (14.0-17.9)
--- NOTE | 2019-08-16 22:58 | NUR ---
RT AT BEDSIDE, PT NOW ON BIPAP 16/5 AND O2 @25%, CONT NEB STILL GOING. DR. RODRIGUEZ NOW AT BEDSE TO [facility]. CARDIZIEM INFUSING, HR 125, REPEAT ECG REQUESTED BY MD. PT DENIES THAT HE IS BREATHING BETTER, BUT RT REPROTS PT APPEARS MORE COMFORTABLE THAN WHEN FIRST ARRIVED.
[2019-08-17] VITALS (7 sets, daily range): BP systolic 101–120; BP diastolic 52–68
[2019-08-17] MEDS ORDERED: ondansetron/PF 4mg/2ml inj IV PRN
[2019-08-17] MEDS ORDERED: magnesium 2GM in 50ml NS 50 ML IV PRN
[2019-08-17] MEDS ORDERED: magnesium hydroxide 30ml (MOM) UD suspension PO PRN
[2019-08-17] MEDS ORDERED: HYDROcodone/acetaminophen 5mg/325mg tablet PO PRN
[2019-08-17] MEDS ORDERED: acetaminophen 325mg tablet PO PRN ×2
[2019-08-17] MEDS ORDERED: magnesium 4gm in 100ml NS 100 ML IV PRN
[2019-08-17] MEDS ORDERED: magnesium Cl slow-release 64mg tablet PO PRN
[2019-08-17] MEDS ORDERED: mag hydrox/Alum hydrox/simeth 30ml oral suspension PO PRN
[2019-08-17] MEDS ORDERED: potassium CL 10mEq/100ml bag 100 ML IV PRN ×2
[2019-08-17] MEDS ORDERED: morphine 2 MG/ML inj. syringe IV PRN ×2
[2019-08-17] MEDS ORDERED: potassium Cl 20 mEq SR tablet PO PRN
[2019-08-17] MEDS ORDERED: ipratropium/albuterol 3ml nebule NEB PRN (00:05)
[2019-08-17 00:16] LABS: ABG BASE EXCESS 2.6 mmol/L (-2.0-3.0); ABG HCO3 28.5 mmol/L (22.0-26.0); ABG OXYGEN SATURATION 80.4 % (95-98); ABG PCO2 (T) 48.8 mmHg (35.0-45.0); ABG PH (T) 7.382 (7.350-7.450); ABG PO2 (T) 43.6 mmHg (83-108); ALLEN'S TEST Positive; FCOHb 2.2 % (0.5-1.5); FMetHb 0.3 % (0.3-1.12); FO2Hb 78.4 % (94-100); MINUTE VOLUME 16 L/min; PATIENT TEMPERATURE 36.6; RESPIRATORY RATE 24 b/min; RESPIRATORY RATE (OBSERVED) 28 b/min; TOTAL HEMOGLOBIN 12.1 G/dl (14.0-17.9)
--- NOTE | 2019-08-17 01:15 | NUR ---
Patient in room ED 5. I have received report from SOFIE Sanders and had the opportunity to ask questions and assume patient care.
--- NOTE | 2019-08-17 01:16 | NUR ---
REPORT CALLED TO [facility] ON PCU, PT CASE, TREATMENT PLAN, CURRENTS MEDS, LABS AND OVERALL CONDITION DISCUSSED. STAGE SET UP WORKER AGREES TO ASSUME CARE OF PATIENT. PT TO BE TRANSPORTED BY RN WITH ALL BELONGINGS INCLUDING R EAR HEARING AID AND DENTURES TO FLOOR.
[2019-08-17] MEDS ORDERED: furosemide 40mg/4ml inj IV ONE (02:00)
--- NOTE | 2019-08-17 02:08 | NUR ---
sent to [facility] MESSAGE: [id number] Jose Lopez: Current BP is 103/58 (68) Would you still like to give the Lasix? Wilda [id number]
[2019-08-17] MEDS ORDERED: furosemide 20 MG/2 ML vial IV ONE (02:35)
[2019-08-17] MEDS: ipratropium/albuterol 3ml nebule NEB SCH ×6 (02:47→23:07)
--- NOTE | 2019-08-17 03:26 | NUR ---
Spoke with Dr. Taylor about patients trop 0 hr 0.04, 3 hr of 0.05. No symptoms, no chest pain at this time will continue to monitor per Dr. Taylor.
--- NOTE | 2019-08-17 03:28 | NUR ---
Patient refusing to wear BIPAP. Dr. Taylor is aware, we placed him on 1 L NC and he is satting at 95%. Patient cannot pee at this time, Dr. Taylor would like to put a Sanders in to make sure he is not retaining but pt is refusing due to urethral implant. Patient states he can urinate fine. He will urinate in the urinal when ready. Patient is also refusing to answer the DART questionnaire, refusing 2 RN skin check at this time.
[2019-08-17 05:46] LABS: BASOPHILS % (AUTO) 0.1 % (0-1); EOSINOPHILS % (AUTO) 0.1 % (0-6); HEMATOCRIT 31.9 % (42.0-52.0); HEMOGLOBIN 10.9 g/dl (14.0-17.9); LYMPHOCYTES # (AUTO) 0.1 X10'3 (1.1-4.8); LYMPHOCYTES % (AUTO) 1.3 % (21-51); MEAN CORPUSCULAR HEMOGLOBIN 34.8 PG (27.0-31.0); MEAN CORPUSCULAR HGB CONC 34.2 g/dL (33.0-36.5); MEAN CORPUSCULAR VOLUME 101.6 FL (78-98); MEAN PLATELET VOLUME 7.1 FL (7.4-10.4); MONOCYTES # (AUTO) 0.3 X10'3 (0-0.9); MONOCYTES % (AUTO) 4.7 % (2-12); NEUTROPHILS # (AUTO) 6.6 X10'3 (1.8-7.7); NEUTROPHILS % (AUTO) 93.8 % (42-75); PLATELET COUNT 254 X10'3 (140-440); RED BLOOD COUNT 3.14 X10'6 (4.70-6.10); RED CELL DISTRIBUTION WIDTH 13.6 % (11.5-14.5)
[2019-08-17 05:51] LABS: ALBUMIN 2.5 G/DL (3.4-5.0); ANION GAP 7 (8-16); BLOOD UREA NITROGEN 50 MG/DL (7-18); BUN/CREATININE RATIO 53.2 (5.4-32.0); CHLORIDE 107 MMOL/L (99-107); CREATININE 0.94 MG/DL (0.60-1.10); GLUCOSE 133 MG/DL (70-104); MAGNESIUM 1.6 MG/DL (1.5-2.4); POTASSIUM 4.3 MMOL/L (3.5-5.1); SODIUM 145 MMOL/L (135-145); TOTAL CARBON DIOXIDE 31.3 MMOL/L (24-32); eGFR 78 ML/MIN
--- NOTE | 2019-08-17 05:59 | NUR ---
Patient is non compliant with all care.
--- NOTE | 2019-08-17 06:00 | NUR ---
Patient is able to urinate easily.
--- NOTE | 2019-08-17 06:36 | NUR ---
Problems reprioritized. Patient report given, questions answered & plan of care reviewed with SOFIE Tapia.
--- NOTE | 2019-08-17 06:50 | NUR ---
Patient in room PCU 3023. I have received report from Wilda CARRIZALES and had the opportunity to ask questions and assume patient care. Patient asleep in bed. 1L O2 nasal cannula. In no acute distress. Will continue to monitor.
--- NOTE | 2019-08-17 06:51 | NUR ---
Patient in room PCU 3023. I have received report from Wilda CARRIZALES and had the opportunity to ask questions and assume patient care.
[2019-08-17] MEDS ORDERED: diltiazem 30mg tablet PO SCH (08:00)
[2019-08-17] MEDS: K and/or MAG REPLACEMENT MC SCH (08:00)
[2019-08-17] MEDS ORDERED: diltiazem 30mg tablet PO PRN (08:00)
[2019-08-17] MEDS ORDERED: furosemide 40mg/4ml inj IV SCH (08:00)
[2019-08-17] MEDS ORDERED: methylPREDNISolone sod succ 125mg/2ml vial IV SCH (08:00)
[2019-08-17] MEDS: methylPREDNISolone sod succ/PF 40mg inj. IV SCH ×2 (09:02→16:39)
[2019-08-17] MEDS: heparin, porcine 5000 units/ml vial SQ SCH ×2 (09:03→19:45)
[2019-08-17] MEDS: furosemide 20 MG/2 ML vial IV SCH ×2 (09:03→19:44)
[2019-08-17] MEDS ORDERED: iohexol 300mg/ml 100ml inj. ONE (11:44)
--- NOTE | 2019-08-17 14:36 | NUR ---
Paged Dr Szymanski PAGER ID: [phone] MESSAGE: Re Jose Lopez Rm [id number]. Pt states wants to leave now, and is combative, trying to get out of bed. Can you order something to calm him down please. Preethi [id number]
--- NOTE | 2019-08-17 16:16 | NUR ---
Patient in room PCU 3023. I have received report from Hernandez RN and had the opportunity to ask questions and assume patient care.
--- NOTE | 2019-08-17 16:16 | NUR ---
Problems reprioritized. Patient report given, questions answered & plan of care reviewed with SOFIE Hoang. Patient stable at transfer of care.
--- NOTE | 2019-08-17 16:18 | NUR ---
RECEIVED REPORT FROM WADE CARRIZALES, ASSUMED CARE AT THIS TIME.
--- NOTE | 2019-08-17 16:20 | NUR ---
AGREE WITH PRIOR ASSESSMENT.
--- NOTE | 2019-08-17 17:10 | NUR ---
[place] documentation: I have reviewed and agree with all interventions, assessments performed and documented by SOFIE Oro. [place] Medication Administration: For this medication-pass time frame, all medication were reviewed, dispensed, administered and documented per hospital policy by SOFIE Oro.
--- NOTE | 2019-08-17 18:30 | NUR ---
Problems reprioritized. Patient report given, questions answered & plan of care reviewed with SOFIE CARCAMO.
--- NOTE | 2019-08-17 18:31 | NUR ---
SCALP SPECIALISTdocumentation clerk: I have reviewed and agree with all interventions, assessments performed and documented by SOFIE OBRIEN.
--- NOTE | 2019-08-17 19:20 | NUR ---
Patient in room PCU 3026. I have received report from SOFIE Martinez and had the opportunity to ask questions and assume patient care.
[2019-08-18] MEDS: methylPREDNISolone sod succ/PF 40mg inj. IV SCH ×4 (00:07→23:44)
[2019-08-18] MEDS: piperacillin/tazo 3.375gm/50ml 50 ML IV SCH ×4 (00:11→23:44)
[2019-08-18 02:00] VITALS: BP 117/61
[2019-08-18] MEDS: ipratropium/albuterol 3ml nebule NEB SCH ×6 (02:47→23:18)
--- NOTE | 2019-08-18 02:57 | NUR ---
Sent to [facility] MESSAGE: ROOM 3026B, Jose Summers: Seems to have thrush tongue is white and patchy, reddened, white areas around mouth as well. Would you like to order oral nystatin? Thank, you [id number] Wilda
[2019-08-18 05:00] LABS: BASOPHILS % (AUTO) 0.1 % (0-1); EOSINOPHILS % (AUTO) 0 % (0-6); LYMPHOCYTES # (AUTO) 0.1 X10'3 (1.1-4.8); MEAN CORPUSCULAR HGB CONC 34.9 g/dL (33.0-36.5); MEAN PLATELET VOLUME 7.1 FL (7.4-10.4); MONOCYTES # (AUTO) 0.3 X10'3 (0-0.9); NEUTROPHILS # (AUTO) 6.4 X10'3 (1.8-7.7); WHITE BLOOD COUNT 6.9 X10'3 (4.5-11.0)
[2019-08-18 05:02] LABS: HEMATOCRIT 30.4 % (42.0-52.0); HEMOGLOBIN 10.6 g/dl (14.0-17.9); LYMPHOCYTES % (AUTO) 1.6 % (21-51); MEAN CORPUSCULAR HEMOGLOBIN 34.6 PG (27.0-31.0); MEAN CORPUSCULAR VOLUME 99.1 FL (78-98); MONOCYTES % (AUTO) 4.5 % (2-12); NEUTROPHILS % (AUTO) 93.8 % (42-75); PLATELET COUNT 278 X10'3 (140-440); RED BLOOD COUNT 3.07 X10'6 (4.70-6.10); RED CELL DISTRIBUTION WIDTH 13.1 % (11.5-14.5)
[2019-08-18 05:22] LABS: ALBUMIN 2.3 G/DL (3.4-5.0); ANION GAP 7 (8-16); BLOOD UREA NITROGEN 46 MG/DL (7-18); BUN/CREATININE RATIO 51.7 (5.4-32.0); CALCIUM 8.9 MG/DL (8.5-10.1); CHLORIDE 102 MMOL/L (99-107); CREATININE 0.89 MG/DL (0.60-1.10); GLUCOSE 108 MG/DL (70-104); MAGNESIUM 1.8 MG/DL (1.5-2.4); POTASSIUM 3.2 MMOL/L (3.5-5.1); SODIUM 141 MMOL/L (135-145); TOTAL CARBON DIOXIDE 32.1 MMOL/L (24-32); eGFR 83 ML/MIN
[2019-08-18 06:00] VITALS: BP 113/64
--- NOTE | 2019-08-18 06:29 | NUR ---
Patient in room U 3026. I have received report from SOFIE Astudillo and had the opportunity to ask questions and assume patient care. Patient currently resting in bed, bed locked and low, sitter in room, call light in reach, no acute distress, will continue to monitor.
--- NOTE | 2019-08-18 06:35 | NUR ---
Problems reprioritized. Patient report given, questions answered & plan of care reviewed with SOFIE Oro.
[2019-08-18] MEDS: heparin, porcine 5000 units/ml vial SQ SCH ×2 (07:52→20:39)
[2019-08-18] MEDS: furosemide 20 MG/2 ML vial IV SCH ×2 (07:52→20:38)
[2019-08-18] MEDS: nystatin 500,000 unit/5ML UD oral suspension PO SCH ×3 (07:53→20:38)
[2019-08-18] MEDS: potassium Cl 20 mEq SR tablet PO PRN ×3 (08:03→21:48)
[2019-08-18] MEDS: K and/or MAG REPLACEMENT MC SCH (08:12)
[2019-08-18 11:00] VITALS: BP 112/55
[2019-08-18 15:00] VITALS: BP 118/71
--- NOTE | 2019-08-18 18:31 | NUR ---
Problems reprioritized. Patient report given, questions answered & plan of care reviewed with SOFIE Tyler. Patient resting in bed, sitter in room, stable at shift change.
--- NOTE | 2019-08-18 18:41 | NUR ---
Patient in room PCU 3026. I have received report from Preethi CARRIZALES and had the opportunity to ask questions and assume patient care.
--- NOTE | 2019-08-18 19:06 | NUR ---
Patient in room PCU 3026. I have received report from Preethi CARRIZALES and had the opportunity to ask questions and assume patient care.
[2019-08-18] MEDS: lactobacillus rhamnosus 10,000 MMU CELLS/CAPSULE PO SCH (20:38)
[2019-08-18 22:00] VITALS: BP 136/73
[2019-08-19 02:00] VITALS: BP 121/68
[2019-08-19] MEDS: ipratropium/albuterol 3ml nebule NEB SCH ×2 (03:21→07:34)
[2019-08-19 05:13] LABS: BASOPHILS % (AUTO) 0.1 % (0-1); EOSINOPHILS % (AUTO) 0 % (0-6); HEMATOCRIT 32.4 % (42.0-52.0); HEMOGLOBIN 11.3 g/dl (14.0-17.9); LYMPHOCYTES # (AUTO) 0.1 X10'3 (1.1-4.8); MEAN CORPUSCULAR HEMOGLOBIN 34.7 PG (27.0-31.0); MEAN CORPUSCULAR HGB CONC 34.8 g/dL (33.0-36.5); MEAN CORPUSCULAR VOLUME 99.7 FL (78-98); MEAN PLATELET VOLUME 7.4 FL (7.4-10.4); MONOCYTES # (AUTO) 0.2 X10'3 (0-0.9); MONOCYTES % (AUTO) 2.2 % (2-12); NEUTROPHILS # (AUTO) 8.8 X10'3 (1.8-7.7); NEUTROPHILS % (AUTO) 96.7 % (42-75); PLATELET COUNT 265 X10'3 (140-440); RED BLOOD COUNT 3.25 X10'6 (4.70-6.10); RED CELL DISTRIBUTION WIDTH 13.6 % (11.5-14.5); WHITE BLOOD COUNT 9.1 X10'3 (4.5-11.0)
[2019-08-19 05:25] LABS: ALBUMIN 2.4 G/DL (3.4-5.0); ANION GAP 6 (8-16); BLOOD UREA NITROGEN 46 MG/DL (7-18); BUN/CREATININE RATIO 47.9 (5.4-32.0); CALCIUM 8.8 MG/DL (8.5-10.1); CHLORIDE 102 MMOL/L (99-107); CREATININE 0.96 MG/DL (0.60-1.10); GLUCOSE 111 MG/DL (70-104); MAGNESIUM 1.7 MG/DL (1.5-2.4); POTASSIUM 3.8 MMOL/L (3.5-5.1); SODIUM 141 MMOL/L (135-145); TOTAL CARBON DIOXIDE 33.1 MMOL/L (24-32); eGFR 76 ML/MIN
[2019-08-19 06:00] VITALS: BP 138/71
--- NOTE | 2019-08-19 06:02 | NUR ---
Problems reprioritized. Patient report given, questions answered & plan of care reviewed with Preethi CARRIZALES.
--- NOTE | 2019-08-19 06:22 | NUR ---
Patient in room PCU 3026. I have received report from SOFIE Tyler and had the opportunity to ask questions and assume patient care. Patient currently resting in bed, bed locked and low, call light in reach, no acute distress, will continue to monitor.
[2019-08-19] MEDS: K and/or MAG REPLACEMENT MC SCH (08:00)
[2019-08-19] MEDS: heparin, porcine 5000 units/ml vial SQ SCH (08:24)
[2019-08-19] MEDS: piperacillin/tazo 3.375gm/50ml 50 ML IV SCH (08:24)
[2019-08-19] MEDS: nystatin 500,000 unit/5ML UD oral suspension PO SCH (08:24)
[2019-08-19] MEDS: lactobacillus rhamnosus 10,000 MMU CELLS/CAPSULE PO SCH (08:24)
[2019-08-19] MEDS: methylPREDNISolone sod succ/PF 40mg inj. IV SCH (08:25)
[2019-08-19] MEDS: furosemide 20 MG/2 ML vial IV SCH (08:25)
[2019-08-19] MEDS ORDERED: PRED20TA PO (10:33)
[2019-08-19] MEDS ORDERED: FURO20TA4 PO (10:33)
[2019-08-19] MEDS ORDERED: NYST1000 PO (10:33)
[2019-08-19] MEDS ORDERED: AMOX-580 PO (10:33)
--- NOTE | 2019-08-19 11:28 | NUR ---
Received orders for patient discharge to home with family. His son has moved into his home to help care for him. Patient belongings gathered, IV removed, catheter tip intact, hemostasis achieved, telemetry removed, wrist band removed. Prescriptions called to [facility] per pt request. Patient educated on medications and verbalized understanding. Patient transported to [facility] by auxillary, stable at time of discharge.
[2019-08-28] MEDS ORDERED: RISP1TAB3 PO (12:43)
[2019-08-28] MEDS ORDERED: ALBU0.63 NEB (12:47)
[2019-08-28] MEDS ORDERED: BUDE0.5A11 IH (12:47)
[2019-08-28] MEDS ORDERED: FURO-150 PO (12:47)
== END 2019-08-19 11:30 | disposition home health service (06) | DRG 189 ==
LOC: ER 22:01 → ED HOLD 08-17 00:19 → CMPBEDREQ 08-17 00:37 → PCU 3S 08-17 01:23 → CMPBEDREQ 08-17 01:38 → PCU 3S 08-17 16:20
PROVIDERS: ADMIT Hospitalist; ATTEND Family Medicine
PROC: 5A09357 Assistance with Respiratory Ventilation, Less than 24 Consecutive Hours, Continuous Positive Airway Pressure (ICD-10-PCS; principal; 2019-08-16)
DX: J96.01 Acute respiratory failure with hypoxia (principal); J18.9 Pneumonia, unspecified organism; J44.1 Chronic obstructive pulmonary disease with (acute) exacerbation; R45.851 Suicidal ideations; J44.0 Chronic obstructive pulmonary disease with (acute) lower respiratory infection; C78.7 Secondary malignant neoplasm of liver and intrahepatic bile duct; J96.02 Acute respiratory failure with hypercapnia; K57.90 Diverticulosis of intestine, part unspecified, without perforation or abscess without bleeding; D64.9 Anemia, unspecified; G47.30 Sleep apnea, unspecified; I10 Essential (primary) hypertension; N28.89 Other specified disorders of kidney and ureter; Z79.51 Long term (current) use of inhaled steroids; Z85.118 Personal history of other malignant neoplasm of bronchus and lung; Z88.5 Allergy status to narcotic agent; Z90.49 Acquired absence of other specified parts of digestive tract; Z79.899 Other long term (current) drug therapy
CPT/HCPCS: 36415; 36600; 71045; 71260; 80048; 80053; 82803; 83735; 83880; 84484; 85018; 85025; 85610; 85730; 87081; 93005; 93308; 94640; 94660; 94760; 96374; 96375; 99291; G0378; J1644; J1940; J2543; J2920; J2930; J3490; Q9967